=== PATIENT | male | born 1970 | race Hispanic/Latino ===

== ENCOUNTER 2024-08-30 19:24 | Observation (INO) | payer SELFPAY ==
[~2024-08-30] VITALS: Ht 152.4 cm; Wt 108.0 kg
[2024-08-30 19:30] VITALS: TEMP 97.7
[2024-08-30 20:06] LABS: BASOPHILS # (AUTO) 0.1 (0.0-0.1); BASOPHILS % 0.7 % (0.0-1.0); EOSINOPHILS # (AUTO) 0.1 (0.0-0.4); EOSINOPHILS % 1.1 % (0.0-6.0); HEMATOCRIT 48.4 % (38.2-49.6); HEMOGLOBIN 15.6 g/dL (14.0-18.0); LYMPHOCYTES # (AUTO) 2.6 (1.0-3.2); LYMPHOCYTES % 30.4 % (18.0-39.1); MEAN CORPUSCULAR HEMOGLOBIN 27.1 pg (28-32); MEAN CORPUSCULAR HGB CONC 32.2 g/dL (31-35); MONOCYTES # (AUTO) 0.7 (0.2-0.8); MONOCYTES % 8.5 % (4.4-11.3); NEUTROPHILS % 59.1 % (38.7-80.0); PLATELET COUNT 267 x10e3/uL (140-360); RED BLOOD COUNT 5.76 x10e6/uL (4.3-5.7); WHITE BLOOD COUNT 8.52 x10e3/uL (4.8-10.8)
[2024-08-30 20:27] LABS: ALBUMIN 3.5 g/dL (3.5-5.0); ALBUMIN/GLOBULIN RATIO 0.9 (0.8-2.0); ANION GAP 14.3 mmol/L (8-16); BILIRUBIN,TOTAL 0.6 mg/dL (0.2-1.2); CALCIUM 9.1 mg/dL (8.4-10.2); CREATININE, SERUM 1.04 mg/dL (0.72-1.25); POTASSIUM 4.3 mmol/L (3.5-5.1); TOTAL PROTEIN 7.6 g/dL (6.5-8.1)
[2024-08-30 20:51] VITALS: PULSE 101; RESP 26
[2024-08-30] MEDS: FUROSEMIDE INJ 10 MG/ML 4 ML VIAL IV ONE (21:00)
[2024-08-30] MEDS ORDERED: DEXTROSE 50% SYRINGE 50 ML IV PRN (21:15)
[2024-08-30 23:30] VITALS: BP 124/87; PULSE 90; RESP 20; TEMP 97.7; O2SAT 100
[2024-08-30 23:58] LABS: TROPONIN I 0.001 ng/mL (0-0.300)
[2024-08-31] MEDS ORDERED: LASIX20 MG PO (00:38)
[2024-08-31] MEDS ORDERED: BENADRYL25 M1 PO (00:38)
[2024-08-31] MEDS ORDERED: ASPIRIN81 MG PO (00:38)
[2024-08-31] MEDS ORDERED: LISINOPRIL10 MG PO (00:38)
[2024-08-31] MEDS ORDERED: METFORMIN HCL500 MG PO (00:38)
[2024-08-31 01:39] VITALS: BP 124/87; PULSE 90; RESP 20; TEMP 97.7; O2SAT 100
[2024-08-31 01:42] VITALS: BP 124/87; PULSE 90; RESP 20; TEMP 97.7; O2SAT 100
[2024-08-31 03:28] VITALS: BP 98/72; PULSE 78; RESP 18; TEMP 97.7; O2SAT 99
[2024-08-31 05:41] LABS: TROPONIN I 0.007 ng/mL (0-0.300)
[2024-08-31] MEDS: INSULIN REGULAR, HUMAN 100 UNIT/1 ML SQ SCH (07:30)
[2024-08-31] MEDS: FUROSEMIDE INJ 10 MG/ML 4 ML VIAL IV SCH (09:03)
[2024-08-31 09:07] VITALS: BP 121/96; PULSE 97; RESP 18; TEMP 98.2; O2SAT 98
[2024-08-31] MEDS ORDERED: SIMETHICONE 80 MG CHEW PO PRN (09:15)
[2024-08-31] MEDS ORDERED: DEXTROSE 50% SYRINGE 50 ML IV PRN (09:15)
[2024-08-31] MEDS ORDERED: BENZONATATE 100 MG CAP PO PRN (09:15)
[2024-08-31] MEDS ORDERED: HYDROCODONE/APAP 5MG-325MG TAB PO PRN (09:15)
[2024-08-31] MEDS ORDERED: ACETAMINOPHEN 325 MG TAB PO PRN (09:15)
[2024-08-31] MEDS ORDERED: POTASSIUM CHLORIDE 20 MEQ TAB CR PO PRN (09:15)
[2024-08-31] MEDS ORDERED: DIPHENHYDRAMINE HCL 25 MG CAP PO PRN (09:15)
[2024-08-31] MEDS ORDERED: MELATONIN 5 MG TABLET PO PRN (09:15)
[2024-08-31] MEDS ORDERED: DOCUSATE SODIUM 100 MG CAP PO PRN (09:15)
[2024-08-31] MEDS ORDERED: LIDOCAINE 4% PATCH TP PRN (09:15)
[2024-08-31] MEDS ORDERED: ALBUTEROL/IPRATROPIUM 3 ML NEB NEB PRN (09:15)
[2024-08-31 09:22] VITALS: BP 121/96; PULSE 97; RESP 18; TEMP 98.2; O2SAT 98
[2024-08-31 09:28] LABS: ANION GAP 16.6 mmol/L (8-16); CALCIUM 8.7 mg/dL (8.4-10.2); CREATININE, SERUM 0.85 mg/dL (0.72-1.25); POTASSIUM 3.6 mmol/L (3.5-5.1)
[2024-08-31 10:30] VITALS: PULSE 101; RESP 19; O2SAT 97
[2024-08-31 10:38] LABS: CHOL/HDL RATIO 4.1 (3.9-4.7)
[2024-08-31] MEDS ORDERED: ENOXAPARIN SOD INJ 40 MG/0.4 ML SYR SC SCH (17:00)
[2024-08-31] MEDS ORDERED: CARVEDILOL 3.125 MG TAB PO SCH (17:00)
[2024-08-31] MEDS ORDERED: ATORVASTATIN 20 MG TAB PO SCH (21:00)
[2024-09-01] MEDS ORDERED: PANTOPRAZOLE SOD 40 MG TABEC PO SCH (07:30)
[2024-09-01] MEDS ORDERED: FUROSEMIDE 40 MG TAB PO SCH (09:00)
[2024-09-01] MEDS ORDERED: ASPIRIN 81 MG CHEW TAB PO SCH (09:00)
[2024-09-01] MEDS ORDERED: LISINOPRIL 20 MG TAB PO SCH (09:00)
[2024-09-01] MEDS ORDERED: LISINOPRIL 2.5 MG TAB PO SCH (09:00)
== END 2024-08-31 14:08 | disposition home or self-care (01) ==
LOC: ER 19:32 → ERHOLD 21:05 → MED/SURG 22:46
PROVIDERS: ADMIT Internal Medicine; ATTEND Internal Medicine
DX: I11.0 Hypertensive heart disease with heart failure (principal); I50.41 Acute combined systolic (congestive) and diastolic (congestive) heart failure; E78.5 Hyperlipidemia, unspecified; I34.0 Nonrheumatic mitral (valve) insufficiency; R00.0 Tachycardia, unspecified; E11.9 Type 2 diabetes mellitus without complications; Z79.84 Long term (current) use of oral hypoglycemic drugs; Z79.899 Other long term (current) drug therapy; Z79.82 Long term (current) use of aspirin
CPT/HCPCS: 36415 ×2; 71045; 80048; 80053; 80061; 82550 ×2; 82948 ×2; 83036; 83880 ×2; 84484 ×2; 85025; 85379; 93005; 93306; 94799; 99284; G0378 ×2; J1940 ×2